=== PATIENT | male | born 1955 | race Two or more races ===

== ENCOUNTER → 2017-04-15 | Outpatient (CLI) | payer OTHER ==
--- NOTE | 2017-04-15 20:41 | CONS ---
CONSULTATION DATE OF SERVICE: 04/15/2017 61-year-old gentleman who has been evaluated in the sleep center for possible obstructive sleep apnea-hypopnea syndrome. HISTORY OF PRESENT ILLNESS/SLEEP WAKE EVALUATION: Patient's usual sleep schedule from around 10:30 p.m. until 7:15 a.m. usually no problems with falling asleep, although he has TV set in bedroom. He snores, has witnessed episodes of stopped breathing during the sleep, wakes up from sleep 2 times with nocturia. No history of hypnagogic hallucinations, sleep paralysis or cataplexy. The patient feels sleepy during the day. [place] Sleepiness Scale increased to 11. PAST MEDICAL HISTORY: Positive for hypertension, hyperlipidemia, hypothyroidism, history of nasal septum deviation and nasal fracture. PAST SURGICAL HISTORY: Bilateral hip replacement. MEDICATIONS: Patient did not bring list of his medications. Possibly he is taking hydrochlorothiazide, Lipitor, levothyroxine. SOCIAL HISTORY: Negative for smoking. Alcohol consumption occasional beer. FAMILY HISTORY: Hypertension, hyperlipidemia, arthritis. REVIEW OF SYSTEMS: Awakenings from sleep, sleepiness during the day. PHYSICAL EXAM: GENERAL gentleman without distress. VITAL SIGNS BP 144/85, HR 98, RR 16, height 5 feet 10 inches, weight 334, BMI 47.9. Neck 19 inches in circumference. Oxygen saturation at room air 95%. HEENT PERRLA, EOMI, evaluation of oropharynx showed low position of soft palate. Nose, significant nasal septum deviation with restriction to nasal breathing. NECK Supple, no JVD. Thyroid is not palpable. LUNGS Clear to percussion and to auscultation. Good air exchange. No wheezing or rhonchi. HEART S1, S2 regular. No murmurs, gallops, or rubs. ABDOMEN Obese. Soft and nontender. Bowel sounds are present. No organomegaly appreciated. EXTREMITIES 1+ bilateral ankle edema. FUSING MACHINE TENDER Awake, alert, and oriented X3. Cranial nerves 2 to 7 intact. There is no fasciculation or atrophy. noted. No focal deficits observed. IMPRESSION: 1. Snoring, witnessed episodes of stopped breathing during sleep, low position of soft palate, awakening from sleep with nocturia, excessive sleepiness, wide neck. Obstructive sleep apnea-hypopnea syndrome. 2. Obesity BMI 47.9. 3. Hypertension. 4. Hyperlipidemia. 5. Hypothyroidism. 6. Status post bilateral hip replacement. 7. Nasal septum deviation. 8. Status post nasal fracture in the past. PLAN: 1. Polysomnography for evaluation of patient's breathing during sleep. 2. CPAP/BiPAP titration if sleep study confirms obstructive sleep apnea-hypopnea syndrome. 3. Preferable position during sleep on the side. 4. No driving if patient feels any sleepiness. Patient is aware of civil and criminal liability for unsafe driving. 5. I will see patient for follow up visit to explain results of testing and following plan. Thank you very much for referring this patient for consultation. Michael Medina MD, PhD, FAASM Diplomat of [employer] Board [employer] Specialties [employer] Board of Internal Medicine Formal Wear Rental Clerk of [facility] [place] MMODL / IJN: [id number] /
== END | disposition home or self-care (01) ==
LOC: SLEEP 15:56
PROVIDERS: ATTEND Internal Medicine
DX: G47.33 Obstructive sleep apnea (adult) (pediatric) (principal); E66.9 Obesity, unspecified; E78.5 Hyperlipidemia, unspecified; E03.9 Hypothyroidism, unspecified; J34.2 Deviated nasal septum; I10 Essential (primary) hypertension; Z96.643 Presence of artificial hip joint, bilateral; Z68.42 Body mass index [BMI] 45.0-49.9, adult; Z87.81 Personal history of (healed) traumatic fracture
CPT/HCPCS: 99211

== ENCOUNTER → 2017-08-26 | Outpatient (CLI) | payer OTHER ==
--- NOTE | 2017-08-26 18:51 | PN ---
PROGRESS NOTE DATE OF SERVICE: 08/26/2017 This patient is a 61-year-old gentleman who has been followed in the sleep center for treatment of extremely severe obstructive sleep apnea-hypopnea syndrome with extremely severe oxygen desaturation. Recently patient had polysomnogram and CPAP titration, and I discussed results of sleep studies with the patient in detail. He has apnea-hypopnea index of 68.2 with oxygen desaturation to 48.7%. During our titration at the pressure of 12, apnea-hypopnea index was 0 with oxygen level above 93.2%. Subsequently patient was started on treatment with CPAP at home with that pressure. Today he came in for the first time with his machine. He is able to use the machine every night without significant problems related to the pressure. The patient does feel a significant difference while he is using the machine with relationship to his sleep and feeling during the day. I checked his CPAP unit. Usage is 100% of the time and 26/30 nights for more than 4 hours, with the average usage 5.6 hours. Leak is 19 L/minute, which is acceptable. Apnea-hypopnea index is 14.0, which is higher than I would like to see. [place] Sleepiness Scale today is 4. MEDICATIONS: 1. Simvastatin. 2. Losartan. 3. Thyroxine. PHYSICAL EXAMINATION: Patient is in no distress. VITAL SIGNS: BP 129/70, HR 60, RR 16, weight 323, temperature 97.7, oxygen saturation at room air 95%. HEENT: PERRLA, EOMI. Evaluation of oropharynx showed tongue protrudes midline; extremely low position of soft palate. NECK: Supple. No JVD. Thyroid is not palpable. LUNGS: Clear to percussion and to auscultation. Good air exchange. No wheezing or rhonchi. HEART: S1, S2 regular. No murmurs, gallops or rubs. ABDOMEN: Obese. EXTREMITIES : No clubbing or cyanosis. SUPERVISOR TOY PARTS FORMER: Awake, alert, and oriented X3. Cranial nerves 2 to 7 intact. There is no fasciculation or atrophy. noted. No focal deficits observed. IMPRESSION: 1. Severe obstructive sleep apnea-hypopnea syndrome; apnea-hypopnea index 68.2 with oxygen desaturation to 48.7%, improved on CPAP at the pressure 12 cm of water. Patient demonstrated good compliance with treatment, benefitting from treatment. 2. Obesity. Present weight 323 pounds, which is close to his weight during the titration. 3. Hypertension. 4. Hyperlipidemia. PLAN: 1. I will change the machine to automatic regimen and increase range of the pressure up to 15 cm of water. 2. Losing weight. 3. Sleep hygiene with regular time in bed for at least 8 hours. 4. No driving if feeling any sleepiness. 5. Follow-up visit in 3 months. Thank you very much for allowing me to participate in the management of your patient. Sincerely, Michael Medina MD, PhD, FAASM Diplomat of [employer] Board of Medical Specialties [employer] Board of Internal Medicine Presiding Steward of [facility] [place] MMODL / IJN: [id number] /
== END | disposition home or self-care (01) ==
LOC: SLEEP 16:42
PROVIDERS: ATTEND Internal Medicine
DX: G47.33 Obstructive sleep apnea (adult) (pediatric) (principal); I10 Essential (primary) hypertension; E78.5 Hyperlipidemia, unspecified; E66.9 Obesity, unspecified; Z79.899 Other long term (current) drug therapy; Z99.89 Dependence on other enabling machines and devices

== ENCOUNTER → 2018-02-17 | Outpatient (CLI) | payer OTHER ==
--- NOTE | 2018-02-17 15:49 | PN ---
PROGRESS NOTE DATE OF SERVICE: 02/17/2018 This patient is a 62-year-old gentleman who has been followed in Sleep Center for treatment of obstructive sleep apnea-hypopnea syndrome. During previous visit I increased the pressure in his machine because apnea-hypopnea index was above normal. PHYSICAL EXAMINATION: GENERAL A pleasant gentleman without distress. VITAL SIGNS: BP 137/70, HR 70, RR 16, height 5 feet 9-1/2 inches, weight 299, body mass index 43.5, temperature 97.0, oxygen saturation at room air 96%. HEENT: PERRLA, EOMI. Evaluation of oropharynx showed tongue protrudes midline; extremely low position of soft palate. NECK: Supple. No JVD. Thyroid is not palpable. LUNGS: Clear to percussion and to auscultation. Good air exchange. No wheezing or rhonchi. HEART: S1, S2 regular. No murmurs, gallops or rubs. ABDOMEN: Obese. EXTREMITIES : No clubbing or cyanosis. IMMERSION METAL CLEANER: Awake, alert, and oriented X3. Cranial nerves 2 to 7 intact. There is no fasciculation or atrophy. noted. No focal deficits observed. IMPRESSION: 1. Severe obstructive sleep apnea-hypopnea syndrome, fully controlled with CPAP at 14 cm of water. The patient demonstrated great compliance with treatment, benefitting from treatment. 2. Obesity. 3. Hypertension. 4. Hyperlipidemia. PLAN: 1. Patient will continue to use CPAP equipment every night for the whole night with the same pressure. 2. Losing weight. 3. Sleep hygiene with regular time in bed for at least 8 hours. 4. No driving if feeling any sleepiness. 5. We will consider using a different style of mask, Maya View. 6. Prescription for all necessary CPAP supplies will be maintained. Thank you very much for allowing me to participate in the management of your patient. Sincerely, Michael Medina MD, PhD, FAASM Diplomat of [place] Board of Medical Specialties [employer] Board of Internal Medicine Veterinary Anatomist of [facility] [place] MMODL / IJN: [id number] /
== END | disposition home or self-care (01) ==
LOC: SLEEP 13:54
PROVIDERS: ATTEND Internal Medicine
DX: G47.33 Obstructive sleep apnea (adult) (pediatric) (principal); E66.9 Obesity, unspecified; I10 Essential (primary) hypertension; E78.5 Hyperlipidemia, unspecified; Z68.41 Body mass index [BMI] 40.0-44.9, adult; Z99.89 Dependence on other enabling machines and devices

== ENCOUNTER → 2019-03-02 | Outpatient (CLI) | payer MEDICARE ==
--- NOTE | 2019-03-02 14:04 | SFUN ---
SLEEP CENTER FOLLOW UP NOTE A 63-year-old gentleman who has been followed in the Sleep Center for treatment of obstructive sleep apnea-hypopnea syndrome. Patient continued to use CPAP equipment every night for the whole night without significant problems related to mask fitting, pressure or humidification. He also changed his mask to a full-face mask over the previous style and he likes at. I checked his CPAP unit. CPAP pressure is 14 cm of water. Usage is 30/30 nights for more than 4 hours with average usage is 6.3 hours per night. Leak is 42 L/minute which is borderline for the full-face mask. Apnea-hypopnea index 3.3, which is absolutely perfect. [place] Sleepiness Scale today is only 1, which is absolutely great. MEDICATIONS: Simvastatin, losartan, . PHYSICAL EXAM: Patient in no distress. BP 119/72, HR 60, RR 16, height 5 feet 9-1/2 inches, weight 296 pounds, body mass index 43, temperature 97.5, oxygen saturation at room air 95%. The patient has lost 3 pounds comparing with the previous visit. OROPHARYNX: Extremely low soft palate, Mallampati 4. ABDOMEN: Slightly obese. Neck Supple, no JVD. Thyroid is not palpable. LUNGS Clear to percussion and to auscultation. Good air exchange. No wheezing or rhonchi. HEART S1, S2 regular. No murmurs, gallops, or rubs. EXTREMITIES No clubbing or cyanosis. S IRON WORKER Awake, alert, and oriented X3. Cranial nerves 2 to 7 intact. There is no fasciculation or atrophy. noted. No focal deficits observed. IMPRESSION: 1. Severe obstructive sleep apnea-hypopnea syndrome on full control with CPAP at 14 cm of water, patient demonstrated 100% compliance with treatment, benefitting from treatment. 2. Obesity. 3. Hypertension. 4. Hyperlipidemia. PLAN: 1. Patient will continue to use CPAP equipment every night for the whole night. 2. I will maintain all necessary prescriptions for CPAP supplies including full-face mask, tube, filters. 3. Continue losing weight. 4. Sleep hygiene with regular time bed for 7-1/2 to 8 hours. 5. No driving if feeling sleepiness. 6. Follow-up visit in 1 year or earlier if patient has any problems. Thank you very much for allowing me to participate in the management of your patient. Sincerely, Michael Medina MD, PhD, FAASM Diplomat of [place] Board of Medical Specialties [employer] Board of Internal Medicine Warehouse Worker 2Nd Shift of [facility] [place] MMKELSEA / GOLD: [id number] /
== END ==
LOC: SLEEP 13:09
PROVIDERS: ATTEND Internal Medicine
DX: G47.33 Obstructive sleep apnea (adult) (pediatric) (principal); E66.9 Obesity, unspecified; I10 Essential (primary) hypertension; E78.5 Hyperlipidemia, unspecified; Z99.89 Dependence on other enabling machines and devices; Z79.899 Other long term (current) drug therapy

== ENCOUNTER → 2021-04-02 | Outpatient (CLI) | payer MEDICARE ==
--- NOTE | 2021-04-02 20:37 | SFUN ---
SLEEP CENTER FOLLOW UP NOTE DATE OF SERVICE: 04/02/2021 This 65-year-old gentleman has been followed in Sleep Center for treatment of obstructive sleep apnea-hypopnea syndrome. I did not see this patient for two years. He continues to use his CPAP equipment every night. No snoring with the machine. [place] Sleepiness Scale today is 2. Sometimes the patient has a leak from his mask and sees a red face on the screen. I checked his CPAP unit. Pressure is 14 cm of water. Usage is 30/30 nights for more than 4 hours, average 5.7 hours per night. Leak is 29 L/minute, which is borderline. Apnea-hypopnea index is 3.1, which is perfect. MEDICATIONS: 1. Simvastatin 40 mg once a day. 2. Losartan 50 mg once a day. 3. Levothyroxine. 4. Aspirin 81 mg. 5. Water pill. I believe patient takes hydrochlorothiazide. He does not remember the name of medication; 50 mg once a day. PHYSICAL EXAMINATION: GENERAL: Pleasant gentleman without distress. VITAL SIGNS: BP 127/82, HR 81, RR 16, height 5 feet 9-1/2 inches, weight 288.4 pounds, body mass index 41.9. Patient lost 8 pounds of weight since his last visit. Temperature 97.3, oxygen saturation at room air 96%. HEENT: PERRLA, EOMI, evaluation of oropharynx showed tongue protrudes midline. Extremely low position of soft palate; Mallampati IV. NECK: Supple, no JVD. Thyroid is not palpable. LUNGS: Clear to percussion and to auscultation. Good air exchange. No wheezing or rhonchi. HEART: S1, S2 regular. No murmurs, gallops, or rubs. ABDOMEN: Obese. EXTREMITIES: No clubbing or cyanosis. LAUNDRY MACHINE MECHANIC: Awake, alert, and oriented X3. Cranial nerves 2 to 7 intact. There is no fasciculation or atrophy. noted. No focal deficits observed. IMPRESSION: 1. Severe obstructive sleep apnea-hypopnea syndrome. Patient demonstrated 100% compliance with treatment, benefitting from treatment. 2. Obesity. Patient lost 8 pounds of weight. 3. Hypertension. 4. Hyperlipidemia. 5. Hypothyroidism. PLAN: 1. Replace air filter. 2. Patient will continue to use PAP equipment every night for the whole night. 3. Sleep hygiene with regular time in bed for at least 7-1/2 to 8 hours. 4. Precautions related to driving. No driving if feeling sleepiness. 5. I will maintain all necessary prescription for PAP supplies including mask, tube, filters. 6. Watching weight. 7. Follow-up visit in 6 months or earlier if patient has any problems. Thank you very much for allowing me to participate in the management of your patient. Sincerely, Michael Medina MD, PhD, FAASM Diplomat of [place] Board of Medical Specialties Sleep Medicine Board of [place] Board of Internal Medicine Heating And Cooling Systems Engineer of [facility] [place] MMODL / IJN: [id number] /
== END | disposition home or self-care (01) ==
LOC: SLEEP 11:38
PROVIDERS: ATTEND Internal Medicine
DX: G47.33 Obstructive sleep apnea (adult) (pediatric) (principal); E66.9 Obesity, unspecified; I10 Essential (primary) hypertension; E78.5 Hyperlipidemia, unspecified; E03.9 Hypothyroidism, unspecified

== ENCOUNTER → 2022-04-16 | Outpatient (CLI) | payer MEDICARE ==
--- NOTE | 2022-04-16 11:40 | P.PN ---
Subjective DATE: 04/16/2022 FOLLOW UP VISIT. Patient with obstructive sleep apnea hypopnea syndrome return to sleep center for follow-up visit. Information from previous visit have been reviewed. Patient is using PAP equipment every night for the whole night, getting PAP supplies in time. The patient does not have significant problems with the mask, PAP unit and humidification. [place] sleepiness scale is on, which is normal. I checked information from PAP unit. PAP unit pressure 14 cm H2O. Usage is 100 % for more then 4 hours, average 5.8 hours per night. Leak is 16 l/m, which is in acceptable range. Apnea Hypopnea Index is 3.1, which is normal. Cover for air filter is broken. MEDICATIONS:1. Levothyroxine 2. Simvastatin 40 mg once a day 3. Losartan 50 mg once a day 4. Aspirin 81 mg once a day 5. Hydrochlorothiazide During physical exam: GENERAL: A pleasant patient without any distress. VITAL SIGNS: BP 127/82, HR 72, RR 16 , weight 286.2, temperature 96.9, oxygen saturation at room air 97 % . HEENT: PERRLA, EOMI.low position of soft palate, Mallapati 4 . NECK: Supple. No JVD. LUNGS: Clear to percussion and to auscultation. Good air exchange. No wheezing or rhonchi. HEART: S1, S2 regular. ABDOMEN: Soft and nontender. Obese EXTREMITIES: No clubbing or cyanosis. BONSAI TENDER: Awake, alert, and oriented x3. No focal deficit. Impressions: 1. Obstructive sleep apnea-hypopnea syndrome. Patient demonstrated great compliance with treatment, benefiting from treatment. 2. Obesity. 3. Hypothyroidism. 4. Hypertension. 5. Hyperlipidemia. Plan: 1. Continue using PAP equipment every night for the whole night. Prescription to replace air filter cover in CPAP unit. 2. To change air filter at least 1-2 times per month. 3. PAP unit should stay lower then position of the head. 4. Advised patient to remove all remaining water from humidifier canister daily and make it dry after each usage. Refill canister with fresh distilled water before each usage. 5. Sleep hygiene with regular time in bed for at least 8 hours. 6. Precautions related to driving. No driving if feel any sleepiness. 7. I will maintain prescription for PAP supplies including mask, tube, filters. 8. Follow up visit in 6 months or earlier if patient has any problems. 9. Watching and losing weight. Thank you very much for allowing me to participate in the management of your patient. Michael Medina MD, PhD, FAASM. Diplomat of [place] Board of Sleep Medicine, Sleep Medicine Board by [place] Board of Internal Medicine Concrete Pavement Installer of [facility] [place]
== END ==
LOC: SLEEP 10:52
PROVIDERS: ATTEND Internal Medicine
DX: G47.33 Obstructive sleep apnea (adult) (pediatric) (principal); Z99.89 Dependence on other enabling machines and devices; E66.9 Obesity, unspecified; I10 Essential (primary) hypertension; E78.5 Hyperlipidemia, unspecified; E03.9 Hypothyroidism, unspecified; Z79.899 Other long term (current) drug therapy
CPT/HCPCS: 99212

== ENCOUNTER → 2022-09-30 | Outpatient (CLI) | payer MEDICARE ==
--- NOTE | 2022-09-30 12:11 | P.PN ---
Subjective DATE: 09/30/2022 FOLLOW UP VISIT. Patient with obstructive sleep apnea hypopnea syndrome return to sleep center for follow-up visit. Information from previous visit have been reviewed. Patient is using PAP equipment every night for the whole night, getting PAP supplies in time. The patient does not have significant problems with the mask, PAP unit and humidification. [place] sleepiness scale is 2, which is normal. I checked information from PAP unit. PAP unit pressure 14 cm H2O. Usage is 100 % for more then 4 hours, average 5.7 hours per night. Leak is 34 l/m, which is in acceptable range. Apnea Hypopnea Index is 2.4, which is normal. MEDICATIONS:1. Simvastatin 40 mg once a day 2. Losartan 50 mg once a day 3. Thyroxine 100 g once a day 4. Hydrochlorothiazide 50 mg once a day GENERAL: A pleasant patient without any distress. VITAL SIGNS: BP 124/73, HR 57, RR 16 , weight 267.4, temperature 97.0, oxygen saturation at room air 98 % . HEENT: PERRLA, EOMI.low position of soft palate, Mallapati 4 . NECK: Supple. No JVD. LUNGS: Clear to percussion and to auscultation. Good air exchange. No wheezing or rhonchi. HEART: S1, S2 regular. ABDOMEN: Soft and nontender. Slightly obese EXTREMITIES: No clubbing or cyanosis. BULK SUGAR HANDLER: Awake, alert, and oriented x3. No focal deficit. Impressions: 1. Obstructive sleep apnea-hypopnea syndrome. Patient demonstrated great compliance with treatment, benefiting from treatment. 2. Obesity, BMI 38.6, patient lost 19 pounds since previous visit. 3. Hypertension. 4. Hypothyroidism. 5. Hyperlipidemia. Plan: 1. Continue using PAP equipment every night for the whole night. 2. To change air filter at least 1-2 times per month. 3. PAP unit should stay lower then position of the head. 4. Advised patient to remove all remaining water from humidifier canister daily and make it dry after each usage. Refill canister with fresh distilled water before each usage. 5. Sleep hygiene with regular time in bed for at least 8 hours. 6. Precautions related to driving. No driving if feel any sleepiness. 7. I will maintain prescription for PAP supplies including mask, tube, filters. 8. Watching and continue losing weight. 9. Follow up visit in 6 months or earlier if patient has any problems. Thank you very much for allowing me to participate in the management of your patient. Michael Medina MD, PhD, FAASM. Diplomat of [place] Board of Sleep Medicine, Sleep Medicine Board by [place] Board of Internal Medicine Liquefied Natural Gas Plant Operator of [facility] [place]
== END ==
LOC: SLEEP 09:56
PROVIDERS: ATTEND Internal Medicine
DX: G47.33 Obstructive sleep apnea (adult) (pediatric) (principal); E66.9 Obesity, unspecified; Z68.38 Body mass index [BMI] 38.0-38.9, adult; I10 Essential (primary) hypertension; E03.9 Hypothyroidism, unspecified; E78.5 Hyperlipidemia, unspecified; Z99.89 Dependence on other enabling machines and devices
CPT/HCPCS: 99212

== ENCOUNTER → 2022-12-30 | Outpatient (CLI) | payer MEDICARE ==
--- NOTE | 2022-12-30 14:12 | P.PN ---
Subjective DATE: 12/30/2022 FOLLOW UP VISIT. Patient with obstructive sleep apnea hypopnea syndrome return to sleep center for follow-up visit. Information from previous visit have been reviewed. Patient is using PAP equipment every night for the whole night, getting PAP supplies in time. The patient does not have significant problems with the mask, PAP unit and humidification. [place] sleepiness scale is, which is perfect. I checked information from PAP unit. PAP unit pressure 12 cm H2O. Usage is 100 % for more then 4 hours, average 5.7 hours per night. Leak is 23 l/m, which is in acceptable range. Apnea Hypopnea Index is 4, which is normal. MEDICATIONS:1. Losartan 50 mg once a day 2. Simvastatin 40 mg once a day 3. Synthroid 100 g once a day 4. Hydrochlorothiazide 50 mg once a day During physical exam: GENERAL: A pleasant patient without any distress. VITAL SIGNS: BP 118/73, HR 78, RR 16 , weight 266.2, temperature 97.5, oxygen saturation at room air 96 % . HEENT: PERRLA, EOMI.low position of soft palate, Mallapati 4 . NECK: Supple. No JVD. LUNGS: Clear to percussion and to auscultation. Good air exchange. No wheezing or rhonchi. HEART: S1, S2 regular. ABDOMEN: Soft and nontender. Slightly obese EXTREMITIES: No clubbing or cyanosis. BUFFER MACHINE: Awake, alert, and oriented x3. No focal deficit. Impressions: 1. Obstructive sleep apnea-hypopnea syndrome. Patient demonstrated great compliance with treatment, benefiting from treatment. 2. Obesity. 3. Hypertension. 4. Hypothyroidism. 5. Hyperlipidemia. Plan: 1. Continue using PAP equipment every night for the whole night. 2. To change air filter at least 1-2 times per month. 3. PAP unit should stay lower then position of the head. 4. Advised patient to remove all remaining water from humidifier canister daily and make it dry after each usage. Refill canister with fresh distilled water before each usage. 5. Sleep hygiene with regular time in bed for at least 8 hours. 6. Precautions related to driving. No driving if feel any sleepiness. 7. I will maintain prescription for PAP supplies including mask, tube, filters. 8. Follow up visit in 6 months or earlier if patient has any problems. 9. Watching and losing weight. Thank you very much for allowing me to participate in the management of your patient. Michael Medina MD, PhD, FAASM. Diplomat of [employer] Board of Sleep Medicine, Sleep Medicine Board by [employer] Board of Internal Medicine Switch Inspector of [facility] [place]
== END ==
LOC: 3 N SLEEP 13:43
PROVIDERS: ATTEND Internal Medicine
DX: G47.33 Obstructive sleep apnea (adult) (pediatric) (principal); E03.9 Hypothyroidism, unspecified; E66.9 Obesity, unspecified; E78.5 Hyperlipidemia, unspecified; I10 Essential (primary) hypertension; Z79.890 Hormone replacement therapy; Z79.899 Other long term (current) drug therapy; Z99.89 Dependence on other enabling machines and devices
CPT/HCPCS: 99212

== ENCOUNTER → 2023-06-30 | Outpatient (CLI) | payer MEDICARE ==
--- NOTE | 2023-06-30 11:28 | P.PN ---
Subjective DATE: 06/30/2023 FOLLOW UP VISIT. Patient with obstructive sleep apnea hypopnea syndrome return to sleep center for follow-up visit. Information from previous visit have been reviewed. Patient is using PAP equipment every night for the whole night, getting PAP supplies in time. CPAP unit is noisy. [place] sleepiness scale is 6. I checked information from PAP unit. PAP unit pressure 14 cm H2O. Usage is 100 %. Leak is increased to 34 l/m. Apnea Hypopnea Index is 0.7, which is normal. MEDICATIONS:1. Simvastatin 40 mg once a day 2. Losartan 50 mg once a day 3. Hydrochlorothiazide 50 mg once a day 4. Cyclobenzaprine 10 mg as needed 5. Tramadol as needed During physical exam: GENERAL: A pleasant patient without any distress. VITAL SIGNS: BP 120/79, HR 88, RR 16, weight 269.6, temperature 97.7, oxygen saturation at room air 97 % . HEENT: PERRLA, EOMI.low position of soft palate, Mallapati[] . NECK: Supple. No JVD. LUNGS: Clear to percussion and to auscultation. Good air exchange. No wheezing or rhonchi. HEART: S1, S2 regular. ABDOMEN: Soft and nontender.[] EXTREMITIES: No clubbing or cyanosis. BOOT MAKER: Awake, alert, and oriented x3. No focal deficit. Impressions: 1. Obstructive sleep apnea-hypopnea syndrome. Patient demonstrated great compliance with treatment, benefiting from treatment. CPAP unit is old and noisy. 2. Hypertension. 3. Hypothyroidism. 4. Hyperlipidemia. 5. Obesity. Plan: 1. Continue using PAP equipment every night for the whole night. Prescription to replace CPAP unit. 2. To change air filter at least 1-2 times per month. 3. PAP unit should stay lower then position of the head. 4. Advised patient to remove all remaining water from humidifier canister daily and make it dry after each usage. Refill canister with fresh distilled water before each usage. 5. Sleep hygiene with regular time in bed for at least 8 hours. 6. Precautions related to driving. No driving if feel any sleepiness. 7. I will maintain prescription for PAP supplies including mask, tube, filters. 8. Follow up visit in 1-2 months after patient will get new CPAP unit. 9. Watching w and losing eight. Thank you very much for allowing me to participate in the management of your patient. Michael Medina MD, PhD, FAASM. Diplomat of [place] Board of Sleep Medicine, Sleep Medicine Board by [place] Board of Internal Medicine Data Collection Specialist of [facility] [place]
== END ==
LOC: 3 N SLEEP 10:18
PROVIDERS: ATTEND Internal Medicine
DX: G47.33 Obstructive sleep apnea (adult) (pediatric) (principal); I10 Essential (primary) hypertension; E03.9 Hypothyroidism, unspecified; E78.5 Hyperlipidemia, unspecified; E66.9 Obesity, unspecified; Z79.899 Other long term (current) drug therapy; Z99.89 Dependence on other enabling machines and devices
CPT/HCPCS: 99212

== ENCOUNTER → 2023-06-30 | Outpatient (CLI) | payer MEDICARE ==
--- NOTE | 2023-06-30 15:56 | XR ---
Supine abdomen. DATE: 06/30/2023. COMPARISON: None available. Clinical history: Constipation. IMPRESSION: There is a large amount of stool seen within the colon. There is no dilated loops of bowel otherwise seen. Bilateral total hip arthroplasties are present.
== END | disposition home or self-care (01) ==
LOC: RADXRMAIN 15:28
PROVIDERS: ATTEND Nurse Practitioner Family
DX: K59.00 Constipation, unspecified (principal); Z96.643 Presence of artificial hip joint, bilateral
CPT/HCPCS: 74018

== ENCOUNTER → 2023-11-03 | Outpatient (CLI) | payer MEDICARE ==
[2023-11-03 11:34] VITALS: BP 130/77; PULSE 78; RESP 18; TEMP 97.9
--- NOTE | 2023-11-03 12:18 | P.PROGSL ---
Subjective DATE: 11/03/2023 FOLLOW UP VISIT. Patient with obstructive sleep apnea hypopnea syndrome return to sleep center for follow-up visit. Information from previous visit have been reviewed. Patient received new CPAP unit, but was not able to use it on a regular basis, she did not like the size of humidifier, also patient had right knee replacement recently. New CPAP unit was taken from him and patient continued to use his old CPAP unit. [place] sleepiness scale is 3, which is normal. I checked information from PAP unit. PAP unit pressure 14 cm H2O. Usage is several nights. Leak is 26 l/m, which is in acceptable range. Apnea Hypopnea Index is 0.2, which is normal. MEDICATIONS: Please see below During physical exam: GENERAL: A pleasant patient without any distress. VITAL SIGNS: Please see below. HEENT: PERRLA, EOMI.low position of soft palate, Mallapati 3 . NECK: Supple. No JVD. LUNGS: Clear to percussion and to auscultation. Good air exchange. No wheezing or rhonchi. HEART: S1, S2 regular. ABDOMEN: Soft and nontender.[] EXTREMITIES: No clubbing or cyanosis. MECHATRONICS ENGINEER: Awake, alert, and oriented x3. No focal deficit. Impressions: 1. Obstructive sleep apnea-hypopnea syndrome. Patient continued to use CPAP equipment, normal respiration on CPAP. 2. Status post recent total right knee replacement and total left knee repl acement in the past. 3. Status post bilateral hip replacement. 4. Hypertension. 5. Hypothyroidism. 6. Obesity, BMI 40.0. 7. Hyperlipidemia. Plan: 1. Continue using PAP equipment every night for the whole night. 2. To change air filter at least 1-2 times per month. 3. PAP unit should stay lower then position of the head. 4. Advised patient to remove all remaining water from humidifier canister daily and make it dry after each usage. Refill canister with fresh distilled water before each usage. 5. Sleep hygiene with regular time in bed for at least 8 hours. 6. Precautions related to driving. No driving if feel any sleepiness. 7. I will maintain prescription for PAP supplies including mask, tube, filters. 8. Follow up visit in 6 months or earlier if patient has any problems. 9. Watching and losing weight. Thank you very much for allowing me to participate in the management of your patient. Michael Medina MD, PhD, FAASM. Diplomat of [place] [employer], Sleep Medicine Board by [employer] Chief Physical Therapist of [facility] [place] Objective - Vital Signs Vital Signs: Vital Signs Temp 97.9 F 11/03/23 11:33 Pulse 78 11/03/23 11:33 Resp 18 11/03/23 11:33 BP 130/77 11/03/23 11:33 Pulse Ox 97 11/03/23 11:33 FiO2 Intake & Output 11/02/23 11/03/23 11/03/23 18:59 06:59 18:59 Weight 126.609 kg Home Medications: Home Medications Medication Instructions Recorded Confirmed Type Levothyroxine Sodium 100 mcg PO DAILY 11/03/23 11/03/23 History Linaclotide [Linzess] 145 mcg PO DAILY 11/03/23 11/03/23 History Losartan [Cozaar] 50 mg PO DAILY 11/03/23 11/03/23 History Simvastatin 40 mg PO DAILY 11/03/23 11/03/23 History hydroCHLOROthiazide [Hydrodiuril] 50 mg PO DAILY 11/03/23 11/03/23 History
== END ==
LOC: 3 N SLEEP 11:15
PROVIDERS: ATTEND Internal Medicine
DX: G47.33 Obstructive sleep apnea (adult) (pediatric) (principal); I10 Essential (primary) hypertension; E03.9 Hypothyroidism, unspecified; E66.9 Obesity, unspecified; E78.5 Hyperlipidemia, unspecified; Z96.653 Presence of artificial knee joint, bilateral; Z96.643 Presence of artificial hip joint, bilateral; Z68.41 Body mass index [BMI] 40.0-44.9, adult; Z99.89 Dependence on other enabling machines and devices; Z79.899 Other long term (current) drug therapy; Z79.890 Hormone replacement therapy
CPT/HCPCS: 99212

== ENCOUNTER → 2024-08-03 | Outpatient (CLI) | payer MEDICARE ==
[2024-08-03 14:54] VITALS: BP 137/77; PULSE 56; RESP 16; TEMP 97.4
--- NOTE | 2024-08-03 15:19 | P.PROGSL ---
Subjective DATE: 07/06/2024 FOLLOW UP VISIT. Patient with obstructive sleep apnea hypopnea syndrome return to sleep center for follow-up visit. Information from previous visit have been reviewed. Patient is using PAP equipment every night for the whole night, getting PAP supplies in time. The patient does not have significant problems with the mask, PAP unit and humidification. [place] sleepiness scale is slightly increased to 11. I checked information from PAP unit. PAP unit pressure 14.0 cm H2O. Usage is 100% for more then 4 hours, average 4.9 hours per night. Leak is 25 l/m, which is in acceptable range. Apnea Hypopnea Index is 2.3, which is normal. MEDICATIONS have been reviewed, please see below. During physical exam: GENERAL: A pleasant patient without any distress. VITAL SIGNS: Please see below, weight is 305 lbs. HEENT: PERRLA, EOMI.low position of soft palate, Mallapati 3. NECK: Supple. No JVD. LUNGS: Clear to percussion and to auscultation. Good air exchange. No wheezing or rhonchi. HEART: S1, S2 regular. ABDOMEN: Soft and nontender.[] EXTREMITIES: No clubbing or cyanosis. FARMWORKER ANIMAL: Awake, alert, and oriented x3. No focal deficit. Impressions: 1. Obstructive sleep apnea-hypopnea syndrome. Patient demonstrated great compliance with treatment, benefiting from treatment. 2. Hypertension. 3. Status post total right knee replacement. 4. Status post total left knee replacement. 5. Status post bilateral hip replacement. 6. Hypothyroidism. 7. Obesity. 8. Hyperlipidemia. Plan: 1. Continue using PAP equipment every night for the whole night. 2. Sleep hygiene with regular time in bed for at least 7.5-8 hours 3. PAP unit should stay lower then position of the head. 4. Advised patient to remove all remaining water from humidifier canister daily and make it dry after each usage. Refill canister with fresh distilled water before each usage. 5. Watching weight. 6. Precautions related to driving. No driving if feel any sleepiness. 7. I will maintain prescription for PAP supplies including mask, tube, filters. 8. Follow up visit in 8 months or earlier if patient has any problems. Thank you very much for allowing me to participate in the management of your patient. Michael Medina MD, PhD, FAASM. Diplomat of [place] [employer], Sleep Medicine Board by [employer] [place] [facility] [place] Objective - Vital Signs Vital Signs: Vital Signs Temp 97.4 F L 08/03/24 14:53 Pulse 56 L 08/03/24 14:53 Resp 16 08/03/24 14:53 BP 137/77 08/03/24 14:53 Pulse Ox 94 L 08/03/24 14:53 FiO2 Intake & Output 08/02/24 08/03/24 08/03/24 18:59 06:59 18:59 Weight 138.346 kg Home Medications: Home Medications Medication Instructions Recorded Confirmed Type Levothyroxine Sodium 100 mcg PO DAILY 11/03/23 08/03/24 History Linaclotide [Linzess] 145 mcg PO DAILY 11/03/23 08/03/24 History Losartan [Cozaar] 50 mg PO DAILY 11/03/23 08/03/24 History Simvastatin 40 mg PO DAILY 11/03/23 08/03/24 History hydroCHLOROthiazide [Hydrodiuril] 50 mg PO DAILY 11/03/23 08/03/24 History
== END ==
LOC: 3 N SLEEP 14:37
PROVIDERS: ATTEND Internal Medicine
DX: G47.33 Obstructive sleep apnea (adult) (pediatric) (principal); I10 Essential (primary) hypertension; E78.5 Hyperlipidemia, unspecified; E66.9 Obesity, unspecified; E03.9 Hypothyroidism, unspecified; Z96.643 Presence of artificial hip joint, bilateral; Z96.653 Presence of artificial knee joint, bilateral
CPT/HCPCS: 99212